=== PATIENT | male | born 1990 ===

== ENCOUNTER 2017-01-30 00:19 | Emergency (ER) | payer MEDICAID ==
[2017-01-30 00:22] VITALS: BMI 43.3
--- NOTE | 2017-01-30 01:13 | ED PDOC ---
Arrival/HPI - General Time Seen by Provider: 01/30/17 00:47 - History of Present Illness Narrative History of Present Illness (Text): 26 year old with no significant past medical history who presents with one day duration of abscess draining in right inframammary region. Patient is anxious and concerned that the abscess is a sign of an underlying cancer. In fact, the patient reports that there is a cyst deep to the abscess that has been present for 15 months that he recently started touching more. He has seen three different physicians in regards to the nature of the "cyst." He denies any galactorrhea, associated lymphadenopathy, but admits to having other abscesses as a result of picking at cysts in the past. He denies any fever, chills, night sweats, or any family history significant for breast cancer. 01/30/17 02:04 (Pedro Limon) Past Medical History - Provider Review Nursing Documentation Reviewed: Yes - Surgical History Hx Tonsillectomy: Yes - Anesthesia Hx Anesthesia: Yes Hx Anesthesia Reactions: No Hx Malignant Hyperthermia: No Family/Social History - Physician Review Nursing Documentation Reviewed: Yes Family/Social History: No Known Family HX Smoking Status: Never Smoked Allergies/Home Meds Allergies/Adverse Reactions: Allergies No Known Allergies Allergy (Verified 01/26/17 11:30) Review of Systems - Review of Systems Constitutional: absent: Fatigue, Weight Change, Fevers Eyes: absent: Vision Changes, Photophobia, Eye Pain ENT: absent: Hearing Changes, Tinnitus, Sore Throat Respiratory: absent: SOB, Cough, Sputum, Wheezing Cardiovascular: absent: Chest Pain, Palpitations, Edema Gastrointestinal: absent: Abdominal Pain, Stool Changes, Constipation, Hematemesis Genitourinary Male: absent: Dysuria, Frequency, Hematuria Musculoskeletal: absent: Arthralgias, Back Pain, Neck Pain Skin: Skin Lesions (righty inframammary region) Neurological: absent: Headache, Dizziness, Focal Weakness Endocrine: absent: Diaphoresis, Polyuria, Polydipsia Hemo/Lymphatic: absent: Easy Bleeding, Easy Bruising Psychiatric: absent: Anxiety, Depression Physical Exam Temperature: Afebrile Blood Pressure: Normal Pulse: Regular Respiratory Rate: Normal Appearance: Positive for: Non-Toxic, Other (anxious) Pain Distress: None Mental Status: Positive for: Alert and Oriented X 3, other (anxious) - Systems Exam Head: Present: Atraumatic, Normocephalic, Other (face shows healing acne scars) Pupils: Present: PERRL Extroacular Muscles: Present: EOMI Conjunctiva: Present: Normal Mouth: Present: Moist Mucous Membranes Pharnyx: Present: Normal. No: ERYTHEMA, EXUDATE Nose (External): Present: Atraumatic Neck: Present: Normal Range of Motion. No: Lymphadenopathy Respiratory/Chest: Present: Clear to Auscultation, Good Air Exchange. No: Respiratory Distress Cardiovascular: Present: Regular Rate and Rhythm, Normal S1, S2 Abdomen: Present: Normal Bowel Sounds. No: Tenderness, Distention, Peritoneal Signs Breast/Axillary: Present: Other (2 x 2 cm superficial abscess in right medial inframammary region). No: Axillary Lymphad, Discoloration, Erythema, Nipple Discharge Back: Present: Normal Inspection. No: CVA Tenderness Upper Extremity: Present: Other (elbows show scars from prior abscesses) Lower Extremity: Present: Normal Inspection. No: Edema, CALF TENDERNESS Neurological: Present: CN II-XII Intact, Speech Normal Skin: Present: Warm, Dry, Abscess (righty inframammary region) Psychiatric: Present: Alert, Oriented x 3, Normal Insight, Anxious Vital Signs Temp Pulse Resp BP Pulse Ox 01/30/17 00:22 98.3 F 78 19 123/76 99 Medical Decision Making ED Course and Treatment: Patient agreeable to discharge with Bactrim DS for abscess. 01/30/17 02:14 (Pedro Limon) Impression: Pt seen and evaluated with medical record clerk. Pt presented for a draining abscess to right breat for 1 day. Aware and agree with HPI, clinical findings, plan, and management. Plan: -- Bactrim -- Reassess and disposition (Baudilio Richard) Disposition/Present on Arrival - Present on Arrival Any Indicators Present on Arrival: No - Disposition Have Diagnosis and Disposition been Completed?: Yes Disposition Time: 01:13 Patient Plan: Discharge - Disposition Diagnosis: Abscess Disposition: HOME/ ROUTINE Condition: GOOD Discharge Instructions (ExitCare): Abscess (ED) Additional Instructions: 1) Please take medication as directed. 2) Please follow up with your primary medical doctor as needed. Prescriptions: Sulfamethoxazole/Trimethoprim [Bactrim DS 800 mg-160 mg] 1 tab PO Q12H #14 tab Referrals: Ta Hamilton MD [Primary Care Provider] - Follow up with primary Forms: [employer] ([place])
[2017-01-30 01:23] VITALS: BP 123/76; PULSE 78; RESP 19; TEMP 98.3; O2SAT 99
== END 2017-01-30 01:25 | disposition home or self-care (01) ==
LOC: ED 00:19
DX: N61.1 Abscess of the breast and nipple (principal)